=== PATIENT | male | born 1990 | race Caucasian/White ===

== ENCOUNTER → 2020-10-28 | Outpatient (CLI) | payer OTHER ==
--- NOTE | 2020-10-28 16:09 | Diagnostic Imaging Report ---
EXAMINATION: Lumbar spine at 3:13 p.m. INDICATION: Back pain. AP, lateral and spot lateral views were obtained. There are no prior studies available for comparison. The lateral view shows slight straightening of the lumbar spine. This may be secondary to muscle spasm and/or positioning. The vertebral body heights are within normal limits and there is no fracture or acute bony abnormality identified. There is mild narrowing of the disc spaces at L4-L5 and L5-S1. The other intervertebral disc spaces are fairly well-maintained. There is no sign of a paraspinal mass. There is mild symmetrical sclerosis of the sacroiliac joints. IMPRESSION: 1. There is no evidence for an acute bony abnormality. 2. There is mild degenerative disc disease at L4-L5 and L5-S1. 3. If there is clinical concern regarding spinal stenosis or nerve root encroachment, then MRI would be recommended for further study. Dictated by: Dictated on workstation # [id number]
== END ==
LOC: RAD 15:02
PROVIDERS: ATTEND Nurse Practitioner Family
DX: M47.817 Spondylosis without myelopathy or radiculopathy, lumbosacral region (principal)
CPT/HCPCS: 72100

== ENCOUNTER → 2020-11-04 | Outpatient (CLI) | payer OTHER ==
--- NOTE | 2020-11-04 09:45 | Diagnostic Imaging Report ---
PROCEDURE: MRI lumbar spine. TECHNIQUE: Multiplanar, multisequence MRI of the lumbar spine was performed without contrast. INDICATION: Low back pain. COMPARISON: Lumbar spine radiographs 10/28/2020. FINDINGS: There are 5 lumbar-type vertebral bodies. Normal alignment. Vertebral body heights preserved. Normal bone marrow signal. No abnormal signal in the conus which terminates at L1. Normal morphology of the cauda equina. At L5-S1, a left paracentral disc extrusion with inferior migration compresses the left S1 nerve root. Disc space height loss also results in moderate bilateral neural foraminal narrowing at this level. Mild spinal canal narrowing. At L4-L5, there is a small central radial tear and disc protrusion which results in no neural impingement. There is mild bilateral neural foraminal narrowing due to disc space height loss. The remaining intervertebral discs are well-preserved. No substantial facet arthropathy. No other neural impingement. IMPRESSION: 1. Large left paracentral disc extrusion with inferior migration at L5-S1 compresses the left S1 nerve root. 2. Moderate bilateral neural foraminal narrowing at L5-S1 due to disc space height loss. 3. Small central radial tear and disc protrusion at L4-L5 results in no neural impingement. Dictated by: Dictated on workstation # [id number]
== END ==
LOC: RAD 08:22
PROVIDERS: ATTEND Nurse Practitioner Family
DX: M48.07 Spinal stenosis, lumbosacral region (principal); M51.37 Other intervertebral disc degeneration, lumbosacral region; M51.27 Other intervertebral disc displacement, lumbosacral region
CPT/HCPCS: 72148

== ENCOUNTER → 2022-10-01 | Outpatient (CLI) | payer BC, OTHER ==
--- NOTE | 2022-10-01 12:26 | Diagnostic Imaging Report ---
Clinical indication: Patient has history of back surgery a year ago. Patient states pain not better. Patient currently for the last few weeks pain is like before he had surgery. EXAM: X-ray of the lumbar spine, 3 views. COMPARISON: X-ray of the lumbar spine 10/28/2020. MRI of the lumbar spine without contrast dated 11/04/2020. FINDINGS: There is no acute lumbar spine fracture or dislocation. There is stable straightening of lumbar spine posture. There is moderate loss of disk space height at the L5-S1 level which is slightly progressed. Otherwise remainder lumbar spine is unremarkable. Sacroiliac joints are unremarkable. IMPRESSION: 1: There is slight progressed of disk space height loss at the L5-S1 level. 2: Stable straightening of the lumbar spine posture. 3: Otherwise, the lumbar spine is stable and unremarkable. Dictated by: Dictated on workstation # [id number]
== END ==
LOC: RAD 09:56
PROVIDERS: ATTEND Nurse Practitioner Family
DX: M51.37 Other intervertebral disc degeneration, lumbosacral region (principal)
CPT/HCPCS: 72100

== ENCOUNTER → 2022-10-20 | Outpatient (CLI) | payer BC ==
--- NOTE | 2022-10-20 13:24 | Diagnostic Imaging Report ---
PROCEDURE: MRI lumbar spine without contrast. TECHNIQUE: Multiplanar, multisequence MRI of the lumbar spine was performed without contrast. INDICATION: Low back pain. COMPARISON: 11/04/2020. FINDINGS: 5 lumbar type vertebral bodies are visualized with the last well-formed disc space designated L5-S1. No acute fracture or dislocation is seen in the lumbar spine. Alignment is anatomic. Vertebral body heights are well-maintained. The bone marrow signal is normal. The conus terminates at the L1 level. No masses are seen associated with the conus or nerve roots of the cauda equina. No epidural collections are identified. Multilevel degenerative changes are seen in the lumbar spine with disc bulges, facet hypertrophy, and buckling of the ligamentum flavum. T12-L1: No significant spinal canal or foraminal stenosis. L1-L2: No significant spinal canal or foraminal stenosis. L2-L3: No significant spinal canal or foraminal stenosis. L3-L4: No significant spinal canal or foraminal stenosis. L4-L5: Broad-based disc bulge with annular fissure, facet hypertrophy, and buckling of the ligamentum flavum results in mild to moderate spinal canal narrowing and mild bilateral foraminal narrowing. L5-S1: Broad-based disc bulge with left subarticular protrusion, facet hypertrophy, and buckling of the ligamentum flavum results in mild spinal canal narrowing, severe left lateral recess stenosis, and moderate to severe right and moderate left foraminal stenosis. Paravertebral soft tissues are unremarkable. IMPRESSION: 1. No acute fracture or dislocation in the lumbar spine. 2. Multilevel degenerative changes in the lumbar spine, greatest at L4-L5 and L5-S1. In particular a prominent left subarticular protrusion is seen at the L5-S1 level resulting in severe left lateral recess stenosis. Dictated by: Dictated on workstation # [id number]
== END ==
LOC: RAD 10-14 08:17
PROVIDERS: ATTEND Nurse Practitioner Family
DX: M47.27 Other spondylosis with radiculopathy, lumbosacral region (principal)
CPT/HCPCS: 72148